=== PATIENT | female | born 1975 | race American Indian/Alaskan Native ===

== ENCOUNTER 2016-11-04 17:30 | Emergency (ER) | payer SELFPAY ==
[2016-11-04] MEDS ORDERED: ZOFRAN ONE (17:55)
[2016-11-04 19:02] LABS: Basophils % (Auto) 0.5 % (0.0-1.8); Hematocrit 41.8 % (30.3-42.9); Hemoglobin 13.9 gm/dl (10.1-14.3); Mean Corpuscular HGB Conc 33 % (30-34); Mean Corpuscular Hemoglobin 32 pg (28-32); Mean Corpuscular Volume 96 fl (79-97); Platelet Count 165 K/mm3 (140-440); Red Blood Count 4.38 M/mm3 (3.65-5.03); Red Cell Distribution Width 14.8 % (13.2-15.2); White Blood Count 8.8 K/mm3 (4.5-11.0)
[2016-11-04 19:23] LABS: Anion Gap 27 mmol/L; Blood Urea Nitrogen 9 mg/dL (7-17); Carbon Dioxide 16 mmol/L (22-30); Glucose 294 mg/dL (65-100); Potassium 4.2 mmol/L (3.6-5.0); Sodium 134 mmol/L (137-145)
[2016-11-04 19:39] LABS: Bilirubin,Urine NEG (Negative); Blood,Urine NEG (Negative); Ketones,Urine 80 mg/dL (Negative); Leukocyte Esterase,Urine NEG (Negative); Mucus,Urine FEW /HPF; Nitrite,Urine NEG (Negative); Protein,Urine <15 mg/dL mg/dL (Negative); Urobilinogen,Urine < 2.0 mg/dL (<2.0)
[2016-11-04] MEDS ORDERED: NACL 0.9% 1000 ML 1,000 ML IV ONE (21:09)
--- NOTE | 2016-11-04 21:09 | Emergency Department Report ---
ED General Adult HPI - General Chief complaint: Hypoglycemia Stated complaint: GENERAL WEAKNESS Time Seen by Provider: 11/04/16 21:08 Source: patient, EMS Mode of arrival: Stretcher Limitations: No Limitations - History of Present Illness Severity scale (0 -10): 5 - Related Data Allergies Allergy/AdvReac Type Severity Reaction Status Date / Time No Known Allergies Allergy Verified 11/04/16 17:48 ED Review of Systems ROS: Stated complaint: GENERAL WEAKNESS Other details as noted in HPI ED Past Medical Hx - Past Medical History Hx Psychiatric Treatment: Yes (manic depression, anxiety) Additional medical history: hypoglycemia. heart murmur. lupus. RA - Surgical History Past Surgical History?: No - Social History Smoking Status: Current Every Day Smoker Substance Use Type: Marijuana ED Physical Exam - General Limitations: No Limitations ED Course Vital Signs 11/04/16 11/04/16 11/04/16 17:45 18:02 19:52 Temperature 96.6 F L 97.9 F Pulse Rate 85 78 Respiratory 18 18 16 Rate Blood Pressure 109/62 109/71 [Left] O2 Sat by Pulse 100 100 Oximetry ED Medical Decision Making - Lab Data Result diagrams: 11/04/16 18:52 11/04/16 18:52 Critical care attestation.: If time is entered above; I have spent that time in minutes in the direct care of this critically ill patient, excluding procedure time. ED Disposition Condition: Stable Referrals: PRIMARY CARE [Primary Care Provider] - 3-5 Days
[2016-11-04 21:24] VITALS: BP 114/71
--- NOTE | 2016-11-04 21:25 | ED Elopement Review ---
ED Pt Elopement review - Results review Lab results: Laboratory Tests 11/04/16 11/04/16 11/04/16 17:41 18:52 18:52 WBC 8.8 RBC 4.38 Hgb 13.9 Hct 41.8 MCV 96 MCH 32 MCHC 33 RDW 14.8 Plt Count 165 Lymph % (Auto) 8.5 L Oliver % (Auto) 5.1 Eos % (Auto) 0.0 Baso % (Auto) 0.5 Lymph # 0.7 L Oliver # 0.5 Eos # 0.0 Baso # 0.0 Seg Neutrophils % 85.9 H Seg Neutrophils # 7.5 Potassium 4.2 Chloride 95.0 L Carbon Dioxide 16 L Anion Gap 27 BUN 9 Creatinine 0.5 L Estimated GFR > 60 BUN/Creatinine Ratio 18.00 Glucose 294 H POC Glucose 249 H Calcium 8.0 L Urine Color Urine Turbidity Urine pH Ur Specific [place] Urine Protein Urine Glucose (UA) Urine Ketones Urine Blood Urine Nitrite Urine Bilirubin Urine Urobilinogen Ur Leukocyte Esterase Urine WBC (Auto) Urine RBC (Auto) U Epithel Cells (Auto) Urine Mucus 11/04/16 19:20 WBC RBC Hgb Hct MCV MCH MCHC RDW Plt Count Lymph % (Auto) Oliver % (Auto) Eos % (Auto) Baso % (Auto) Lymph # Oliver # Eos # Baso # Seg Neutrophils % Seg Neutrophils # Potassium Chloride Carbon Dioxide Anion Gap BUN Creatinine Estimated GFR BUN/Creatinine Ratio Glucose POC Glucose Calcium Urine Color Yellow Urine Turbidity Clear Urine pH 5.0 Ur Specific [place] 1.018 Urine Protein <15 mg/dl Urine Glucose (UA) >=500 Urine Ketones 80 Urine Blood Neg Urine Nitrite Neg Urine Bilirubin Neg Urine Urobilinogen < 2.0 Ur Leukocyte Esterase Neg Urine WBC (Auto) 1.0 Urine RBC (Auto) 1.0 U Epithel Cells (Auto) 3.0 Urine Mucus Few - Call Back decision Pt Call Back Decision: No action required
== END 2016-11-04 21:33 | disposition left against medical advice (07) ==
LOC: ED 17:30
DX: E11.649 Type 2 diabetes mellitus with hypoglycemia without coma (principal); Z53.21 Procedure and treatment not carried out due to patient leaving prior to being seen by health care provider
CPT/HCPCS: 36415; 80048; 81001; 82962; 85025; J2405